=== PATIENT | male | born 1975 | race Caucasian/White ===

== ENCOUNTER 2018-05-12 17:43 | Emergency (ER) | payer OTHER ==
[2018-05-12] MEDS ORDERED: IBUPROFEN 600 MG TAB PO ONE (20:03)
[2018-05-12] MEDS ORDERED: CYCLOBENZAPRINE 10 MG TAB PO ONE (20:03)
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
[2018-05-12 20:42] VITALS: BP 101/85
--- NOTE | 2018-05-14 17:38 | ASMTCMCOM ---
CM Note CM Note Notes: CM asked to follow up with patient and see how he was doing s/p ED visit on 05/12/18. Patient reports that he is doing "okay" but is really not feeling great. "I have some soreness in my back and need to follow up with someone" This CM reminded patient of referral to [facility] and patient confirms that he has the contact information. Patient states that he "will probably call tomorrow for an appointment". This CM offered, and faxed over ED report to the clinic and encouraged patient to follow up in the morning. I attempted to leave a VM on the "backline" for the clinic, but unfortunately the mailbox was full. CM available for further needs PRN Date Signed: 05/14/2018 05:37 PM Electronically Signed By:Dahiana Pedraza RN
== END 2018-05-12 20:42 | disposition home or self-care (01) ==
DX: S16.1XXA Strain of muscle, fascia and tendon at neck level, initial encounter (principal); V49.50XA Passenger injured in collision with unspecified motor vehicles in traffic accident, initial encounter; Y92.410 Unspecified street and highway as the place of occurrence of the external cause; Y93.9 Activity, unspecified; Y99.9 Unspecified external cause status